=== PATIENT | male | born 1970 | race African-American/Black ===

== ENCOUNTER 2024-03-15 10:52 | Inpatient (IN) | payer MEDICAID ==
[~2024-03-15] VITALS: Ht 180.3 cm; Wt 87.5 kg
[2024-03-15] MEDS: IPRATROPIUM/ALBUTEROL 0.5-3(2.5)MG/3ML NEB HHN SCH (08:31)
[2024-03-15] MEDS: SODIUM CHLORIDE 0.9% (SEPSIS BOLUS) IV ONE (11:21)
[2024-03-15 11:51] LABS: HEMATOCRIT. 38.6 % (42.0-52.0); HEMOGLOBIN. 12.8 g/dL (14.0-18.0); MEAN CORPUSCULAR HEMOGLOBIN 28.9 pg (28.0-32.0); MEAN CORPUSCULAR VOLUME 87.3 fL (80.0-94.0); MEAN PLATELET VOLUME 9.2 fl (7.4-10.4); PLATELET 164 x1000/uL (130-400); RED BLOOD CELL COUNT 4.42 mill/uL (4.7-6.1); WHITE BLOOD COUNT 14.9 x1000/uL (4.5-11.0)
[2024-03-15] MEDS: VANCOMYCIN 1G PREMIX 200 ML IV ONE (11:52)
[2024-03-15] MEDS: PIPERACILLIN/TAZO 3.375G/50ML 50 ML IV ONE (11:52)
[2024-03-15 11:55] LABS: CHLORIDE 95 mEq/L (98-107); POTASSIUM 4.1 mEq/L (3.5-5.1); SODIUM 130 mEq/L (136-145)
[2024-03-15 11:56] LABS: CALCIUM 8.5 mg/dL (8.7-10.4); CARBON DIOXIDE 21 mEq/L (21-32)
[2024-03-15 11:58] LABS: DIFFERENTIAL COMMENT 1
[2024-03-15 12:00] LABS: IRON 16 ug/dL (65-175)
[2024-03-15 12:01] LABS: CREATININE 1.2 mg/dL (0.6-1.3); UREA NITROGEN BLOOD 17 mg/dL (9-23)
[2024-03-15 12:03] LABS: TOTAL IRON BINDING CAPACITY 335 ug/dl (250-425)
[2024-03-15 12:04] LABS: ALANINE AMINOTRANSFERASE 20 IU/L (10-49); ALBUMIN 4.2 g/dL (3.2-4.8); ASPARTATE AMINOTRANSFERASE 15 IU/L (<34); BILIRUBIN DIRECT 0.4 mg/dL (<=3.0); PROTEIN TOTAL 7.4 g/dL (6.0-8.3)
[2024-03-15 12:09] LABS: GLUCOSE 402 mg/dL (70-105); TROPONIN I HIGH SENSITIVITY < 4 ng/L (3.0-53)
[2024-03-15 12:27] LABS: PROTHROMBIN TIME 11.4 sec (9.6-11.0)
[2024-03-15 13:05] LABS: PLATELET ESTIMATE NORMAL
[2024-03-15] MEDS: INSULIN REGULAR (HUMULIN R) 1000UNITS/10ML VIAL IV SCH (13:10)
[2024-03-15] MEDS ORDERED: IPRATROPIUM/ALBUTEROL 0.5-3(2.5)MG/3ML NEB HHN PRN (14:30)
[2024-03-15] MEDS ORDERED: MAGNESIUM/ALUMINUM HYDROXIDE/SIMETHICONE 30ML UDC PO PRN (14:30)
[2024-03-15] MEDS ORDERED: ACETAMINOPHEN 325MG TABLET PO PRN (14:30)
[2024-03-15] MEDS ORDERED: ONDANSETRON HCL 4MG/2ML INJ IV PRN (14:30)
[2024-03-15] MEDS ORDERED: DEXTROSE 50% WATER 50ML SYRINGE IV PRN ×2 (14:30→18:00)
[2024-03-15] MEDS ORDERED: GUAIFENESIN 200MG/10ML SUGAR FREE UDC PO PRN (14:30)
[2024-03-15] MEDS ORDERED: CEFTRIAXONE 1GM/50ML 50 ML IV SCH (15:15)
[2024-03-15] MEDS ORDERED: CLONIDINE 0.1MG TABLET PO PRN (15:20)
[2024-03-15] MEDS: PANTOPRAZOLE SODIUM 40 MG/VIAL IV SCH (15:39)
[2024-03-15] MEDS: SODIUM CHLORIDE 0.9% 1,000 ML IV SCH (15:40)
[2024-03-15] MEDS: BENZONATATE 100MG CAPSULE PO SCH (17:21)
[2024-03-15] MEDS: LORATADINE 10MG TABLET PO SCH (17:22)
[2024-03-15 18:00] VITALS: BP 159/89; PULSE 111; RESP 20; TEMP 36.9474; O2SAT 99
[2024-03-15 18:31] LABS: CHLORIDE 98 mEq/L (98-107); POTASSIUM 4.1 mEq/L (3.5-5.1); SODIUM 133 mEq/L (136-145)
[2024-03-15 18:32] LABS: CARBON DIOXIDE 29 mEq/L (21-32)
[2024-03-15 18:33] LABS: CALCIUM 8.6 mg/dL (8.7-10.4)
[2024-03-15 18:37] LABS: CREATININE 1.1 mg/dL (0.6-1.3)
[2024-03-15 18:38] LABS: UREA NITROGEN BLOOD 16 mg/dL (9-23)
[2024-03-15 18:52] LABS: GLUCOSE 239 mg/dL (70-105)
[2024-03-15 20:00] VITALS: BP 153/74; PULSE 110; RESP 18; TEMP 36.22512; TEMP 36.2512; O2SAT 97
[2024-03-15] MEDS ORDERED: LISI20TA31 PO (20:00)
[2024-03-15] MEDS ORDERED: METF-1149 MT (20:00)
[2024-03-15] MEDS: BLOOD SUGAR DIAGNOSTIC STRIP TEST SCH (20:20)
[2024-03-15 21:01] LABS: TROPONIN I HIGH SENSITIVITY < 4 ng/L (3.0-53)
[2024-03-15] MEDS: INSULIN GLARGINE 100 UNITS/ML SUBCUT SCH (21:17)
[2024-03-15] MEDS: INSULIN LISPRO 100 UNITS/ML SUBCUT SCH (21:17)
[2024-03-16] VITALS (8 sets, daily range): BP systolic 101–153; BP diastolic 54–91; PULSE 64–108; RESP 18–20; TEMP 36.55848–37.16964; O2SAT 92–100
[2024-03-16] MEDS: INSULIN LISPRO 100 UNITS/ML SUBCUT SCH (06:14)
[2024-03-16 06:51] LABS: BASOPHILS % 0.2 % (0.0-2.0); HEMATOCRIT. 33.7 % (42.0-52.0); HEMOGLOBIN. 11.6 g/dL (14.0-18.0); LYMPHOCYTES % 11.5 % (20.0-50.0); MEAN CORPUSCULAR HEMOGLOBIN 29.9 pg (28.0-32.0); MEAN CORPUSCULAR HGB CONC 34.5 g/dL (31.0-37.0); MEAN CORPUSCULAR VOLUME 86.8 fL (80.0-94.0); MEAN PLATELET VOLUME 9.6 fl (7.4-10.4); MONOCYTES % 7.4 % (2.0-8.0); NEUTROPHILS % 80.9 % (40.0-76.0); PLATELET 147 x1000/uL (130-400); RED BLOOD CELL COUNT 3.88 mill/uL (4.7-6.1); RED CELL DISTRIBUTION WIDTH 12.6 % (11.6-14.6); WHITE BLOOD COUNT 9.6 x1000/uL (4.5-11.0)
[2024-03-16 07:21] LABS: CHLORIDE 100 mEq/L (98-107); POTASSIUM 3.8 mEq/L (3.5-5.1); SODIUM 134 mEq/L (136-145)
[2024-03-16 07:22] LABS: CALCIUM 8.6 mg/dL (8.7-10.4); CARBON DIOXIDE 27 mEq/L (21-32)
[2024-03-16 07:27] LABS: CREATININE 0.9 mg/dL (0.6-1.3); GLUCOSE 161 mg/dL (70-105); TRIGLYCERIDE 93 mg/dL (0-150)
[2024-03-16 07:28] LABS: LDL CHOLESTEROL 43 mg/dL (5-100); UREA NITROGEN BLOOD 17 mg/dL (9-23)
[2024-03-16 07:29] LABS: CHOLESTEROL 90 mg/dL (<200); HDL CHOLESTEROL 25 mg/dL (>55)
[2024-03-16 07:31] LABS: T4 FREE 1.09 ng/dL (0.89-1.76); THYROID STIMULATING HORMONE 1.06 uIU/mL (0.55-4.78)
[2024-03-16] MEDS: AZITHROMYCIN 500 MG TABLET PO SCH (08:23)
[2024-03-16] MEDS: ACETAMINOPHEN 650MG/20.3ML UDC PO SCH (10:45)
[2024-03-16 11:04] LABS: CLARITY URINE CLEAR (CLEAR); COLOR URINE DARK YELLOW (YELLOW); GLUCOSE URINE 3+ (NEGATIVE); KETONES URINE 1+ (NEGATIVE); LEUKOCYTE ESTERASE URINE NEGATIVE (NEGATIVE); NITRITE URINE NEGATIVE (NEGATIVE); OCCULT BLOOD URINE NEGATIVE (NEGATIVE); PH URINE 5.5 (4.5-8.0); PROTEIN URINE 2+ (NEGATIVE); SPECIFIC GRAVITY URINE 1.034 (1.005-1.030)
[2024-03-16 11:18] LABS: RBC URINE NONE SEEN /hpf (0-2); SQUAMOUS EPITHELIAL CELL URINE NONE SEEN /lpf (RARE/1+); WBC URINE 0-2 /hpf (0-2); YEAST URINE NONE SEEN
[2024-03-16 11:19] LABS: BACTERIA URINE 1+
[2024-03-16 11:20] LABS: *AMPHETAMINES SCREEN URINE NEGATIVE (NEGATIVE)
[2024-03-16 11:21] LABS: *BARBITURATES SCREEN URINE NEGATIVE (NEGATIVE); *BENZODIAZEPINES SCREEN URINE NEGATIVE (NEGATIVE); *COCAINE SCREEN URINE NEGATIVE (NEGATIVE); CANNABINOID URINE SCREEN NEGATIVE (NEGATIVE); ECSTASY MDMA SCREEN URINE NEGATIVE (NEGATIVE); METHADONE URINE SCREEN NEGATIVE (NEGATIVE); OPIATES URINE SCREEN NEGATIVE (NEGATIVE); PHENCYCLIDINE URINE SCREEN NEGATIVE (NEGATIVE)
[2024-03-16] MEDS: ACETAMINOPHEN 325MG TABLET PO PRN (11:57)
[2024-03-16] MEDS: GUAIFENESIN 200MG/10ML SUGAR FREE UDC PO SCH (11:58)
[2024-03-16] MEDS: CEFTRIAXONE 1GM/50ML 50 ML IV SCH (16:29)
[2024-03-17] VITALS (11 sets, daily range): BP systolic 103–164; BP diastolic 60–94; PULSE 61–107; RESP 18–20; TEMP 36.55848–36.78072; O2SAT 93–100
[2024-03-17 06:53] LABS: CARBON DIOXIDE 27 mEq/L (21-32); CHLORIDE 101 mEq/L (98-107); POTASSIUM 3.8 mEq/L (3.5-5.1); SODIUM 136 mEq/L (136-145)
[2024-03-17 06:55] LABS: CALCIUM 8.6 mg/dL (8.7-10.4)
[2024-03-17 07:00] LABS: GLUCOSE 227 mg/dL (70-105); UREA NITROGEN BLOOD 17 mg/dL (9-23)
[2024-03-17 08:06] LABS: BASOPHILS % 0.3 % (0.0-2.0); EOSINOPHILS % 0.3 % (0.0-5.0); HEMATOCRIT. 32.9 % (42.0-52.0); HEMOGLOBIN. 11.1 g/dL (14.0-18.0); LYMPHOCYTES % 21.1 % (20.0-50.0); MEAN CORPUSCULAR HGB CONC 33.6 g/dL (31.0-37.0); MEAN CORPUSCULAR VOLUME 86.4 fL (80.0-94.0); MEAN PLATELET VOLUME 9.6 fl (7.4-10.4); MONOCYTES % 11.1 % (2.0-8.0); NEUTROPHILS % 67.2 % (40.0-76.0); PLATELET 142 x1000/uL (130-400); RED BLOOD CELL COUNT 3.81 mill/uL (4.7-6.1); RED CELL DISTRIBUTION WIDTH 12.7 % (11.6-14.6); WHITE BLOOD COUNT 4.6 x1000/uL (4.5-11.0)
[2024-03-17] MEDS ORDERED: AMOX1TAB15 MT (13:57)
[2024-03-17] MEDS ORDERED: BENZ100C86 PO (13:57)
[2024-03-17] MEDS ORDERED: CLAR10 PO (13:57)
[2024-03-17] MEDS ORDERED: AZIT500T8 PO (13:57)
[2024-03-17] MEDS ORDERED: LANTUSUD SUBCUT (13:57)
[2024-03-17] MEDS ORDERED: DEXTL PO (13:57)
[2024-03-17] MEDS ORDERED: METF-1150 PO (13:57)
[2024-03-17] MEDS ORDERED: PANT40TA51 PO (13:58)
[2024-03-17] MEDS: METFORMIN HCL 500MG TABLET PO SCH (17:39)
[2024-03-18] VITALS (9 sets, daily range): BP systolic 123–144; BP diastolic 67–94; PULSE 95–117; RESP 16–20; TEMP 36.6696–38.22528; O2SAT 93–98
[2024-03-18 17:25] LABS: PHOSPHORUS 3.1 mg/dL (2.5-4.9)
[2024-03-18] MEDS: ACETAMINOPHEN 650MG/20.3ML UDC PO PRN (17:26)
[2024-03-19] VITALS: BP 138/94; PULSE 96; RESP 17; TEMP 36.55848; O2SAT 98
[2024-03-19 04:00] VITALS: BP 125/65; PULSE 105; RESP 16; TEMP 36.55848; O2SAT 97
[2024-03-19 10:30] VITALS: PULSE 95; RESP 20
[2024-03-19 11:01] VITALS: BP 140/69; PULSE 98; RESP 18; TEMP 36.9474; TEMP 36.94740; O2SAT 99
[2024-03-19 13:07] VITALS: BP 134/78; PULSE 85; TEMP 99.3; O2SAT 96
== END 2024-03-20 02:41 | disposition home or self-care (01) | DRG 720 ==
LOC: ER 11:01 → EDBEDREQ 14:13 → EDBEDREQTM 14:13 → 8WST 18:27
PROVIDERS: ADMIT Preventive Medicine Clinical Informatics; ATTEND Preventive Medicine Clinical Informatics
DX: A41.9 Sepsis, unspecified organism (principal); J18.9 Pneumonia, unspecified organism; E11.65 Type 2 diabetes mellitus with hyperglycemia; D50.9 Iron deficiency anemia, unspecified; E78.00 Pure hypercholesterolemia, unspecified; I10 Essential (primary) hypertension; Z20.822 Contact with and (suspected) exposure to COVID-19; J22 Unspecified acute lower respiratory infection; Z91.148 Patient's other noncompliance with medication regimen for other reason; Z79.4 Long term (current) use of insulin; Z87.891 Personal history of nicotine dependence
CPT/HCPCS: 36415; 71045; 80048; 80061; 80076; 80305; 81003; 82010; 82728; 82962; 83036; 83540; 83550; 83605; 83735; 83930; 84100; 84145; 84439; 84443; 84481; 84484; 85025; 87070; 87420; 87426; 87804; 93005; 94640; 94760; 99285; J0696; J1815; J2470; J2543; J3370; J7030